=== PATIENT | female | born 1935 | race Caucasian/White ===

== ENCOUNTER 2024-11-01 00:10 | Emergency (ER) | payer MEDICARE, SELFPAY ==
[2024-11-01] VITALS (35 sets, daily range): BP systolic 113–178; BP diastolic 72–111; PULSE 74–93; RESP 16; TEMP 36.6; O2SAT 84–96
--- NOTE | 2024-11-01 00:34 | W.ED.GENAD ---
Discharge Plan Disposition Patient Disposition: Home Condition: Good Discharge Details Clinical Impression: Incarcerated left inguinal hernia, SBO (small bowel obstruction) Primary Care Provider: Sonja,Local ED Provider: Luis M Tidwell Meds and New Rx's Prescriptions: Continued atorvastatin [Lipitor] 20 mg tablet 20 mg PO QHS chlorpheniramine maleate [Aller-Chlor] 4 mg tablet 4 mg PO ONCE omeprazole 10 mg capsule,delayed release(DR/EC) 10 mg PO DAILY hydrochlorothiazide 25 mg tablet 25 mg PO DAILY diltiazem HCl 360 mg tablet extended release 24 hr 360 mg PO DAILY calcium citrate-vitamin D3 [Calcium Citrate + D] 315 mg-5 mcg (200 unit) tablet 1 tab PO BID Discharge Instructions Additional Instructions: You were seen in the ED for abdominal pain and vomiting. You were found to have an incarcerated left inguinal hernia which I was able to reduce without difficulty. You were observed with improvement of your abdominal pain and no further vomiting. Laboratory studies overall were reassuring. For now stick with a clear liquid diet until you begin passing gas and stool again. You may then begin to advance your diet slowly. Follow-up with your PCP and/or your surgeon this week. Return to the ED if you have increasing abdominal pain, fever, persistent vomiting, other concerns. HPI General Mode of arrival: ambulatory. Date/Time Provider Initiated Documentation: 11/01/24 00:33. Limitations to Documentation: no limitations. Information obtained by: patient and RN notes reviewed. HPI Narrative: Patient presents to ED with complaint of generalized abdominal pain and an episode of vomiting. Patient reports that since the pain is started she has had bloating and increased abdominal size. She reports that she is having a lot of belching. She is passing some gas and had a small bowel movement this evening. Denies any radiation of pain into the back. Denies any chest pain or shortness of breath. Has had no previous abdominal surgeries. Did see a surgeon last week at home because of the left inguinal hernia. She reports that it was felt that it would unlikely cause any problems and no planned intervention at this time. Denies any inguinal pain, urinary symptoms, fever. Related Data Home Medications ?Medication ?Instructions ?Recorded ?Confirmed atorvastatin 20 mg tablet (Lipitor) 20 mg PO QHS 11/01/24 11/01/24 calcium 315 mg (as 1 tab PO BID 11/01/24 11/01/24 citrate)-vitamin D3 5 mcg (200 unit) tablet (Calcium Citrate + D) chlorpheniramine maleate 4 mg 4 mg PO ONCE 11/01/24 11/01/24 tablet (Aller-Chlor) diltiazem HCl 360 mg 360 mg PO DAILY 11/01/24 11/01/24 tablet,extended release 24 hr hydrochlorothiazide 25 mg tablet 25 mg PO DAILY 11/01/24 11/01/24 omeprazole 10 mg capsule,delayed 10 mg PO DAILY 11/01/24 11/01/24 release Allergies Allergy/AdvReac Type Severity Reaction Status Date / Time Penicillins Allergy Unknown Verified 11/01/24 00:44 Exam Narrative Exam Narrative: Const: WDWN elderly female in NAD. VS per triage. HEENT: NC/AT. Normal facial exam. Neck: Supple. Trachea midline. Lungs: Normal respiratory effort. Lungs are clear. Cor: RRR without murmur. Good radial pulses. GI: Soft/NT. Mildly distended. Neuro: A+O x 3. Normal speech, mentation, gait. Cranial nerves II - XII grossly intact. No gross motor or sensory deficit. Ext: No C/C/E. Medical Decision Making Patient presenting to ED with complaint of generalized abdominal pain, bloating and 1 episode of vomiting this evening. Pain began this afternoon she states initially right-sided. Denies any previous abdominal surgeries. Does report a left inguinal hernia for which she saw a surgeon last week. She is not from the [facility] and all of her care has previously been at home in the [facility]. She does appear to have slightly distended abdomen but is nontender to palpation. Pain seems to be mostly periumbilical and upper according to her. Doubt that this is cardiac but will obtain EKG and a single troponin given that she has had this since this afternoon. Will otherwise workup for abdominal pain to include CT scan of the abdomen pelvis. IV fluids and ondansetron ordered. Laboratory studies overall reassuring. White count is somewhat elevated at 13.3. Hemoglobin is normal. She appears to have a little bit of renal insufficiency but I do not have a baseline. Creatinine is 1.1. Potassium is low at 3. She does take hydrochlorothiazide so this is likely the culprit. Her liver functions are unremarkable. Lipase is normal. Troponin is normal. Urinalysis without evidence of infection. My read of her CT scan suggest an incarcerated left inguinal hernia with resulting bowel obstruction. On reexam she is stating she is feeling better. Once I lied her flat and palpated the left inguinal area I did find a small hard bulge that she did not complain of being painful until I started pushing on it. With some constant gentle pressure I was able to reduce her hernia with resolution of the bulge and pain in that area. I received a call by radiology after I carried out the reduction. They confirmed incarcerated left inguinal hernia with bowel obstruction. At this time I will keep the patient NPO. I will give her some IV potassium given her low potassium. I will observe in the ED over the next few hours to see how she feels and does. Patient has been ambulating in the ED. She has no abdominal pain at this time. She has not had any flatus but is feeling much better. Abdomen remains benign at this time. No tenderness in the left inguinal area. Plan is to return home in [place] later today. She will follow-up with PCP and/your surgeon back home. Return precautions provided. Imaging Data Radiologic Study: Attestation: I personally reviewed and interpreted this imaging study as follows: Imaging: CT Scan My impression: see [facility] Lab Data Lab results reviewed: Yes I reviewed the patient's lab results. Lab results narrative: see [facility] ECG Data Attestation: I personally reviewed and interpreted this ECG (s) as follows: Prior ECG tracings: not available for review Interpretation: see EKG/[facility] All Active Problems (Updated 11/01/24 @ 06:30 by Luis M Tidwell MD) SBO (small bowel obstruction) (Acute) Incarcerated left inguinal hernia (Acute) Medical History Hyperlipidemia HTN (hypertension) Social History Smoking/Tobacco Use Status: Never Smoking risk assessment performed?: Yes Alcohol Intake: current Alcohol Intake frequency: a few times a week Substance use type: does not use Housing: house Do you feel safe at home: Yes
--- NOTE | 2024-11-01 00:45 | RT.EKG_ITS ---
APPROVED REPORT Exam: Resting ECG Reason for Exam: abd pain/vomiting Patient Location: E HR:85 bpm ECG Measurements Heart Rate 85 AXIS NM 190 P 24 QRSd 101 QRS 5 QT 402 T -1 QTc 476 Conclusion Sinus rhythm...normal P axis, V-rate 60- 99 Atrial premature complex...SV complex w/ short R-R interval Low voltage, precordial leads...precordial leads <1.0mV Normal [place] Nonspecific ST-T changes No acute ST changes
[2024-11-01] MEDS: Ondansetron 4 MG/2 ML VIAL IVP (01:08)
[2024-11-01] MEDS: Normal Saline 500 ML IV (01:09)
[2024-11-01 01:15] LABS: Abs Immature Grans 0.04 10^3/uL (0.0-0.06); Absolute Basophil Count 0.05 10^3/uL (0.0-0.2); Absolute Eosinophil Count 0.04 10^3/uL (0.0-0.7); Absolute Monocyte Count 0.65 10^3/uL (0.1-0.8); Absolute Neutrophil Count 11.46 10^3/uL (1.2-6.7); Basophils % 0.4 %; Eosinophils % 0.3 %; HCT 41.4 % (36.0-46.0); HGB 14.1 g/dL (11.2-15.7); Immature Grans % 0.3 %; Lactate 1.5 mmol/L (<or=2.0); MCH 27.4 pg (27.0-33.0); MCHC 34.1 % (32.0-36.0); MCV 80 fL (80-95); MPV 10.7 fL (8.0-11.0); Monocytes % 4.9 %; Neutrophils % 86.1 %; Platelet Count 326 10^3/uL (130-400); RBC 5.15 10^6/uL (3.93-5.22); RDW 13.8 % (11.7-14.6); RDW-SD 40.4 fL; WBC 13.31 10^3/uL (4.4-10.8)
[2024-11-01 01:16] LABS: Absolute Lymphocyte Count 1.06 10^3/uL (1.2-3.4)
[2024-11-01 01:36] LABS: ALT 22 U/L (14-59); AST 19 U/L (15-37); Alkaline Phosphatase 139 U/L (46-116); Anion Gap 10.8 mmol/L (3-11); BUN 27 mg/dL (7-18); Bilirubin, Total 0.5 mg/dL (0.2-1.0); CO2 30.2 mmol/L (21.0-32.0); CREATININE 1.1 mg/dL (0.55-1.02); Chloride 96 mmol/L (98-107); Estimated GFR 48.33 (mL/min/1.73m2); Glucose 147 mg/dL (74-106); Lipase 63 U/L (<78); Magnesium 2.1 mg/dL (1.8-2.4); Sodium 137 mmol/L (136-145); Total Protein 8.3 g/dL (6.4-8.2); Troponin I 8 ng/L (<or=51)
[2024-11-01 01:39] LABS: Bilirubin Negative (Negative); Blood Trace-intact (Negative); Clarity Clear (Clear); Glucose Negative (Negative); Ketones Negative (Negative); Leukocyte Esterase Negative (Negative); Nitrite Negative (Negative); Specific Gravity 1.015 (1.005-1.025); Urobilinogen 0.2 mg/dL (Up to 0.2)
[2024-11-01 01:43] LABS: Bacteria Moderate HPF (Negative); C & S Indicated? No; Casts Negative LPF (Negative); Crystals Few Amorphous HPF (Negative); Epithelial Cells Few HPF (Negative); Mucus Negative (Negative); RBC 0-2 HPF (0-2); WBC 0-2 HPF (0-5)
--- NOTE | 2024-11-01 02:17 | DI.CT_ITS ---
Exam(s) CT ABDOMEN PELVIS W EXAM: CT ABDOMEN PELVIS W CLINICAL HISTORY: abd pain/bloating/vomiting TECHNIQUE: Imaging Protocol: Axial computed tomography images with coronal and sagittal reformatted images were created and reviewed. CONTRAST MATERIAL: Intravenous: Omnipaque 350 contrast volume:75 mL Oral: No COMPARISON: No exams were available for comparison FINDINGS: ABDOMEN: Lung Bases: There is a fluid-filled mildly dilated distal esophagus. This may raise a concern for aspiration. Coronary artery calcifications are present. Liver: Normal density. No measurable mass. Portal, Superior Mesenteric, and Splenic Veins: Unremarkable. Gallbladder and Biliary Tract: Gallbladder is contracted. No stones are present. There is no biliary ductal dilatation. Pancreas: Normal density, no abnormal calcifications or inflammatory process. Spleen: Normal. Adrenals: No masses seen. Kidneys: Normal size, contour and axis. No radiodense stones or obstructive uropathy. No masses seen. Abdominal Aorta: Abdominal portion non-dilated. Extensive atherosclerotic calcification is present. Bowel: There is a left inguinal hernia containing a loop of small bowel. There is dilatation of the small bowel proximally. The distal small bowel is of normal caliber. The findings are consistent with a obstruction. There is a small amount of fluid in the hernia sac. There is no wall thickening present. There is dilatation of the stomach noted. There is diverticulosis seen in the colon without evidence of acute diverticulitis. No evidence of an appendicitis is present. Peritoneal Cavity: No ascites, collection or mesenteric inflammatory response. No free air. Lymph Nodes: Within normal limits. Bones: Within normal limits for the patient's age. There is a left convex lumbar scoliosis. Soft Tissues: There is a small fat containing umbilical hernia. PELVIS: Bladder: Symmetric distention, no gross wall thickening. Reproductive Organs: Unremarkable as visualized. Lymph Nodes: Within normal limits. Bones: Within normal limits for the patient's age. IMPRESSION: Small bowel containing left inguinal hernia. There is dilatation of the bowel within the hernia and proximally consistent with incarceration and small bowel obstruction. There is a small amount of fluid in the hernia sac. No free air is seen. There is no evidence of pneumatosis. RADIATION DOSE DELIVERED: 354.15mGy.cm Total DLP DATA REPOSITORY: All CT scans at this facility are submitted to the National Radiology Data Registry (NRDR) Dose Index Registry (DIR) with the [employer] ([employer]). RADIATION OPTIMIZATION: All CT scans at this facility use at least one of these dose optimization techniques: automated exposure control; mA and/or kV adjustment per patient size (includes targeted exams where dose is matched to clinical indication); or iterative reconstruction.
[2024-11-01] MEDS: Normal Saline - Diluent 50 ML VIAL IJ (02:20)
[2024-11-01] MEDS: Omnipaque 350 MG/ML 100 ML BTL 75 ML IJ (02:20)
--- NOTE | 2024-11-01 02:46 | DI.VRAD_ITS ---
Addendum created by Jarvis Chavez MD on 11/01/2024 3:41:11 AM EDT: Findings discussed with BHANU RODNEY MD at time of interpretation. Initial report created on 11/01/2024 2:46:10 AM EDT: PROCEDURE INFORMATION: Exam: CT Abdomen And Pelvis With Contrast Exam date and time: 11/01/2024 2:05 AM Age: 89 years old Clinical indication: Other: Abd pain/bloating/vomiting TECHNIQUE: Imaging protocol: Computed tomography of the abdomen and pelvis with contrast. Contrast material: OMNIPAQUE 350; Contrast volume: 75 ml; Contrast route: INTRAVENOUS (IV); COMPARISON: No relevant prior studies available. FINDINGS: Heart: Cardiomegaly. Esophagus: Mild fluid distension of the distal esophagus compatible with gastroesophageal reflux. Liver: Normal. No mass. Gallbladder and biliary ducts: Normal. No calcified stones. No ductal dilation. Pancreas: Unremarkable. Spleen: Normal. Adrenal glands: Normal. No mass. Kidneys and ureters: Normal. No hydronephrosis. Stomach and bowel: Colonic diverticulosis. No diverticulitis. No bowel wall thickening. Appendix: Normal appendix. Intraperitoneal space: Unremarkable. No pneumoperitoneum. No abscess. Vasculature: Unremarkable. Lymph nodes: Unremarkable. Urinary bladder: Urinary bladder prolapse. Reproductive: Unremarkable as visualized. Bones/joints: Unremarkable. No acute fracture. Soft tissues: High-grade mid small bowel obstruction secondary to incarcerated left inguinal hernia containing a short loop of fluid-filled dilated small bowel. Trace ascites in the hernia sac. No bowel wall thickening or significant inflammation to indicate strangulation. IMPRESSION: 1. High-grade mid small bowel obstruction secondary to incarcerated left inguinal hernia containing a short loop of fluid-filled dilated small bowel. Trace ascites in the hernia sac. No bowel wall thickening or significant inflammation to indicate strangulation. 2. Mild fluid distension of the distal esophagus compatible with gastroesophageal reflux. Dictated and Authenticated by: Jarvis Chavez MD. Orderin Yaw Asencio MD
[2024-11-01] MEDS: POTASSIUM CHLORIDE 10 MEQ/100 ML BAG 100 MEQ IV_INF (02:49)
== END 2024-11-01 06:52 | disposition home or self-care (01) ==
PROVIDERS: Emergency Provider Emergency Medicine
DX: K40.30 Unilateral inguinal hernia, with obstruction, without gangrene, not specified as recurrent (principal); I11.0 Hypertensive heart disease with heart failure; E78.5 Hyperlipidemia, unspecified; I10 Essential (primary) hypertension
CPT/HCPCS: 36415; 80053; 83690; 93005; 96361; 96365; 96375; 99285; 74177; 81003; 81015; 83605; 83735; 84484; 85025; 93010; J2405; J3480; J3490